=== PATIENT | male | born 1980 | race Caucasian/White ===

== ENCOUNTER 2020-01-14 16:03 | Inpatient (IN) | payer OTHER ==
--- NOTE | 2020-01-14 21:33 | HP ---
CIWA Score - Admission Criteria [facility] Guidelines: Admission for Medically Managed Detox: Requires at least one of the followin. CIWA greater than 12 2. Seizures within the past 24 hours 3. Delirium tremens within the past 24 hours 4. Hallucinations within the past 24 hours 5. Acute intervention needed for co occurring medical disorder 6. Acute intervention needed for co occurring psychiatric disorder 7. Severe withdrawal that cannot be handled at a lower level of care (continued vomiting, continued diarrhea, abnormal vital signs) requiring intravenous medication and/or fluids 8. Admission ROS [facility] Chief Complaint: seeking txment for cocaine dependence History of Present Illness: ADMITTED TO REHAB. THIS IS CLIENT FIRST ADMISSION . HE IS REFERRED BY [facility] AFTER PRESENTING THERE FOR HELP. HE REPORTS DAILY USE OF COCAINE. LAST USE 2 DAYS AGO VIA SMOKING. HE ALSO ABUSES MARIJUANNA. DENIES HX/O DRUG OVERDOSE, IVDU. DENIES ANY CLEAN TIME IN THE PAST 12 MONTHS. HX/ OF INPATIENT TXMENT. LAST BEING 2017- REHAB. LONGEST CLEAN TIME 1 MONTH. HOMELESS, OPEN LEGAL CASES Exam Limitations: No Limitations - Ebola screening Have you traveled outside of the country in the last 21 days: No Have you had contact with anyone from an Ebola affected area: No Have you been sick,other than usual withdrawal symptoms: No Do you have a fever: No - Review of Systems Constitutional: No Symptoms Reported EENT: reports: No Symptoms Reported Respiratory: reports: No Symptoms reported Cardiac: reports: No Symptoms Reported GI: reports: No Symptoms Reported : reports: No Symptoms Reported Musculoskeletal: reports: No Symptoms Reported Integumentary: reports: No Symptoms Reported Neuro: reports: No Symptoms reported Endocrine: reports: No Symptoms Reported Hematology: reports: No Symptoms Reported Psychiatric: reports: Agitated (IRRITABLE), Depressed (DENIES SI) Other Systems: Reviewed and Negative Patient History - Patient Medical History Hx Anemia: No Hx Asthma: No Hx Chronic Obstructive Pulmonary Disease (COPD): No Hx Cancer: No Hx Cardiac Disorders: No Hx Congestive Heart Failure: No Hx Hypertension: No Hx Hypercholesterolemia: No Hx Pacemaker: No HX Cerebrovascular Accident: No Hx Seizures: No Hx Dementia: No Hx Diabetes: No Hx Gastrointestinal Disorders: No Hx Liver Disease: No Hx Genitourinary Disorders: No Hx Sexually Transmitted Disorders: No Hx Renal Disease (ESRD): No Hx Thyroid Disease: No Hx Human Immunodeficiency Virus (HIV): No Hx Hepatitis C: No Hx Depression: Yes (NO MEDS) Hx Bipolar Disorder: Yes Hx Schizophrenia: Yes Other Medical History: DENIES - Patient Surgical History Past Surgical History: No - PPD History Previous Implant?: Yes Documented Results: Negative w/o proof Implanted On Prior [facility] Admission?: No PPD to be Administered?: Yes - Smoking Cessation Smoking history: Current every day smoker Have you smoked in the past 12 months: Yes Aproximately how many cigarettes per day: 20 Cigars Per Day: 0 Hx Chewing Tobacco Use: No Initiated information on smoking cessation: Yes 'Breaking Loose' booklet given: 01/14/20 - Substance & Tx. History Hx Alcohol Use: Yes Hx Substance Use: Yes Substance Use Type: Cocaine, Heroin Hx Substance Use Treatment: Yes ([facility]) - Substances abused Cocaine Substance route: Smoking Frequency: Daily Amount used: 8 BALL Age of first use: 26 Date of last use: 01/12/20 Marijuana/Hashish Substance route: Oral Frequency: Daily Amount used: DIME Age of first use: 15 Date of last use: 01/12/20 Admission Physical Exam [facility] - Physical General Appearance: Yes: Irritable, Anxious HEENTM: Yes: EOMI, Normocephalic, Normal Voice, [place], Pharynx Normal Respiratory: Yes: Chest Non-Tender, Lungs Clear, Normal Breath Sounds, No Respiratory Distress, No Accessory Muscle Use Neck: Yes: No masses,lesions,Nodules, Supple, Trachea in good position Breast: Yes: Breasts Symetrical Cardiology: Yes: Regular Rhythm, Regular Rate, S1, S2 Abdominal: Yes: Normal Bowel Sounds, Non Tender, Soft Genitourinary: Yes: Within Normal Limits Back: Yes: Normal Inspection Musculoskeletal: Yes: Within Normal Limits Extremities: Yes: Normal Capillary Refill, Normal Range of Motion, Non-Tender Neurological: Yes: Fully Oriented, Motor Strength 5/5, Depressed Affect Integumentary: Yes: Dry, Warm, Other (CALLUSES NOTED TO FEEL HEALING ABRASION NOTED TO BOTH SHINS FROM) Lymphatic: Yes: Within Normal Limits - Diagnostic (1) Cannabis dependence, uncomplicated Current Visit: Yes Status: Acute (2) Cocaine dependence, uncomplicated Current Visit: Yes Status: Acute (3) Nicotine dependence Current Visit: Yes Status: Acute (4) Homeless Current Visit: Yes Status: Acute (5) Substance induced mood disorder Current Visit: Yes Status: Acute (6) Depressed affect Current Visit: Yes Status: Acute (7) Non compliance with medical treatment Current Visit: Yes Status: Chronic (8) Non compliance w medication regimen Current Visit: Yes Status: Chronic Cleared for Admission [facility] - Detox or Rehab Detox Regimen/Protocol: Not Applicable Claeared for Rehab Admission: Yes Inpatient Rehab Admission - Rehab Decision to Admit Inpatient rehab admission?: Yes - Initial Determination Are CD services needed?: Yes Free of communicable disease: Yes Not in need of hospitalization: Yes - Rehab Admission Criteria Previous failed treatment: Yes Poor recovery environment: Yes Comorbidities: Yes Lacks judgement: No Patient is meeting Inpatient Rehab admission criteria:: Yes
[2020-01-14] MEDS ORDERED: MAG HYDROX/AL HYDROX/SIMETH 30 ML UNIT-DOSE CUP PO PRN (21:36)
[2020-01-14] MEDS ORDERED: MAGNESIUM HYDROX 2400MG/30ML ORAL SUSPENSION 30 ML CUP PO PRN (21:36)
[2020-01-14] MEDS ORDERED: IBUPROFEN 400 MG TABLET (FP) PO PRN (21:36)
[2020-01-14] MEDS ORDERED: MAGNESIUM CITRATE 300 ML BOTTLE PO PRN (21:36)
[2020-01-14] MEDS ORDERED: NICOTINE POLACRILEX 2 MG GUM BC PRN (21:36)
[2020-01-14] MEDS ORDERED: ACETAMINOPHEN 325 MG TABLET (FP) PO PRN (21:36)
[2020-01-14] MEDS ORDERED: P-EPHED 60MG/TRIPROLIDI 2.5MG TABLET PO PRN (21:36)
[2020-01-14] MEDS ORDERED: LOPERAMIDE HCL 2 MG CAPSULE PO PRN (21:36)
[2020-01-14] MEDS ORDERED: guaiFENesin 200 MG/10 ML 10 ML UNIT-DOSE CUPS PO PRN (21:36)
[2020-01-14 22:34] VITALS: BMI 21.7
[2020-01-14] MEDS ORDERED: TUBERCULIN PPD 5 TU/0.1ML VIAL ID ONE (22:51)
[2020-01-14] MEDS: THIAMINE HCL 100 MG TABLET (FP) PO SCH (22:57)
[2020-01-14] MEDS: MELATONIN 5 MG TABLETS PO SCH (22:58)
[2020-01-14] MEDS: hydrOXYzine PAMOATE 25 MG CAPSULE (FP) PO SCH (22:58)
[2020-01-15] MEDS: hydrOXYzine PAMOATE 25 MG CAPSULE (FP) PO SCH ×5 (07:30→22:17)
[2020-01-15] MEDS: NICOTINE 21 MG/24 HOURS TOPICAL PATCH TD SCH (10:57)
[2020-01-15] MEDS: PRENATAL VITAMINS W/ FOLIC ACID TABLET (FP) PO SCH (10:57)
--- NOTE | 2020-01-15 11:21 | CONSULT ---
[facility] Psychiatric Consult - Data Date of interview: 01/15/20 Admission source: [facility] Identifying data: Patient is a 39 year old single male without children, unemployed, resides in a fdc, and is supported by welfare. This is patient's first admission to [facility]. Patient admitted to for cocaine dependence. Substance Abuse History: Smoking Cessation. Smoking history: Current every day smoker. Have you smoked in the past 12 months: Yes. Aproximately how many cigarettes per day: 20. Cigars Per Day: 0. Hx Chewing Tobacco Use: No. Initiated information on smoking cessation: Yes. 'Breaking Loose' booklet given: 01/14/20. - Substance & Tx. History. Hx Alcohol Use: Yes. Hx Substance Use: Yes. Substance Use Type: Cocaine, Heroin. Hx Substance Use Treatment: Yes ([facility]). - Substances abused. Cocaine. Substance route: Smoking. Frequency: Daily. Amount used: 8 BALL. Age of first use: 26. Date of last use: 01/12/20. Marijuana/Hashish. Substance route: Oral. Frequency: Daily. Amount used: DIME. Age of first use: 15. Date of last use: 01/12/20 Medical History: denies. endorses good health. Psychiatric History: Mr. Hanson first psychiatric contact occured at 18 years of age due onset disturbances of auditory hallucinations. He reports seeing an outpatient psychiatrist who diagnosed him with bipolar, schizophrenia and prescribed him psychotropic medications. Patient reports history of approximately five psychiartric hospitalizations ([facility], [facility]) most recently at [facility] from December 24- due to hearing voices and exhibiting depressive symptoms. States he was prescribed risperdal and other medications he can't recall. After discharge patient reports throwing away his medications. Patient with a history of noncompliance to outpatient treatment. He also reports past treatment with haldol, seroquel, abilify, and zyprexa. Denies history suicide attempt. At present patient denies auditory/visual hallucinations, suicidal/homicidal ideation. Physical/Sexual Abuse/Trauma History: denies. Additional Comment: Patient is registered sexual offender. Mental Status Exam - Mental Status Exam Alert and Oriented to: Time, Place, Person Cognitive Function: Good Patient Appearance: Well Groomed Mood: Withdrawn, Irritable (slightly irritable but cooperative.) Affect: Flat Patient Behavior: Cooperative Speech Pattern: Appropriate Voice Loudness: Moderately Soft/Quiet Thought Process: Goal Oriented Thought Disorder: Not Present Hallucinations: Denies Suicidal Ideation: Denies Homicidal Ideation: Denies Insight/Judgement: Poor Sleep: Fair Appetite: Fair Muscle strength/Tone: Normal Gait/Station: Normal Psychiatric Findings - Problem List ([place] 1, 2,3) (1) Schizoaffective disorder Current Visit: Yes Status: Chronic Qualifiers: Schizoaffective disorder type: bipolar Qualified Code(s): F25.0 - Schizoaffective disorder, bipolar type (2) Cannabis dependence, uncomplicated Current Visit: Yes Status: Acute (3) Cocaine dependence, uncomplicated Current Visit: Yes Status: Acute (4) Nicotine dependence Current Visit: Yes Status: Acute (5) Substance induced mood disorder Current Visit: Yes Status: Acute (6) Bipolar disorder Current Visit: Yes Status: Chronic - Initial Treatment Plan Initial Treatment Plan: Psychoeducation provided. Rehab in progress. Unable to verify medications but patient did reports taking risperdal but is unsure of dosages. Patient also reported stiffness from taking medications. Will initiate treatment with Risperdal 1mg BID ( first dose to be given now) + Cogentin 0.5mg BID. Benefits and side effects discussed. Verbal consent given.
--- NOTE | 2020-01-15 12:04 | PN ---
[facility] Progress Note Note: Pt is a 39 y/o male with a hx of LAWANDA-cocaine,marijuana admitte to rehab through [facility] and first time to this facility. Referred from [facility]. Pt is Homeless. PMHx:Denies. Psych Hx:Depression(no Meds). Vital Signs - 24 hr 01/14/20 01/14/20 01/15/20 22:31 23:05 00:30 Temperature 98.8 F 97.4 F L Pulse Rate 73 64 Respiratory 18 16 20 Rate Blood Pressure 111/68 114/67 01/15/20 01/15/20 07:10 10:00 Temperature 97.9 F Pulse Rate 73 Respiratory 20 16 Rate Blood Pressure 105/63 Alert and irritable when called to be seen nad oob ambulating with steady gait Pt became very angry and irritable when called to see him for new pt first encounter. Pt was cursing and stating "even José Migueldavid doesn't get called the way you all are calling me. I need to rest and I don't want any thing right now") A/P new rehab pt Irritablility Maintain safety Pt was allowed to get back to his room to rest and he agreed to be seen again tomorrow. re-visit to seehow pt is doing tomorrow.
[2020-01-15 13:16] LABS: HEMATOCRIT 36.5 % (35.4-49); HEMOGLOBIN 12.2 GM/dL (11.7-16.9); MCH 30.8 pg (25.7-33.7); MCHC 33.5 g/dl (32.0-35.9); MEAN PLT VOLUME 8.6 fl (7.5-11.1); PLATELET COUNT 267 K/MM3 (134-434); RBC 3.97 M/mm3 (4.00-5.60); RDW 14.7 % (11.9-15.9); WHITE BLOOD COUNT 4.7 K/mm3 (4.0-10.0)
[2020-01-15 13:28] LABS: ALBUMIN 3.2 g/dl (3.4-5.0); BILIRUBIN,TOTAL 0.4 mg/dL (0.2-1); BLOOD UREA NITROGEN 13.1 mg/dL (7-18); CALCIUM 8.3 mg/dL (8.5-10.1); CREATININE 1.1 mg/dL (0.55-1.3); TOT PROT 6.3 g/dl (6.4-8.2)
[2020-01-15] MEDS ORDERED: risperiDONE 1 MG TABLET PO SCH (13:30)
[2020-01-15] MEDS ORDERED: BENZTROPINE MESYLATE 1 MG TABLET PO SCH (13:30)
--- NOTE | 2020-01-15 14:06 | EKG ---
Test Reason : Blood Pressure : / mmHG Vent. Rate : 072 BPM Atrial Rate : 072 BPM P-R Int : 180 ms QRS Dur : 096 ms QT Int : 442 ms P-R-T Axes : 044 072 068 degrees QTc Int : 483 ms NORMAL SINUS RHYTHM PROLONGED QT ABNORMAL ECG NO PREVIOUS ECGS AVAILABLE Confirmed by MAGALI WATSON MD ([id number]) on 01/15/2020 2:06:06 PM Referred By: Confirmed By:MAGALI WATSON MD
--- NOTE | 2020-01-15 15:50 | PN ---
[facility] Progress Note Note: Psychiatric nurse hilary note: Counselor Liliam able to obtain patient's list of psychotropic medications from his discharge paperwork from [facility]. As per paperwork from [facility] patient has been diagnosed with Bipolar disorder unspecified, and MDD with psychotic features. Patient's medications are as followed : Haldol 10mg BID +Depakote 500mg EC BID + Cogentin 1mg BID. At 1:30 pm mortgage or loan underwriter spoke to patient bedside concerning these medications and patient became highly irritable and raised his voice at mortgage or loan underwriter. Patient stated to mortgage or loan underwriter, " Leave me alone i Just want to sleep i am exhausted. No disrespect to you but i am tired of being awaken. I ain't taking no medications. I am tired. Leave me alone." Nursing staff informed. Upon initial assessment patient did not present with psychotic symptoms but did present with mild irritability and resistance to treatment but was cooperative while speaking to mortgage or loan underwriter. He did agree to accept medications but later refused (risperdal 1mg + Cogentin 0.5mg) when offered ( Risperdal 1mg + Cogentin 0.5mg BID was discontinued after discharge paperwork from [facility] was obtained.) Even though patient refuses to accept medications, mortgage or loan underwriter will order above medications that were given to him at [facility] in case patient decides to change his mind. Currently there is no need for psychiatric transfer. There is a risk of patient decompensating if he continues to refuse psychotropic medications. If this is the case, transfer to a psychiatric facility should be considered. Since patient was recently discharged from [facility], [facility] should be contacted in hopes of re-admitting patient to the psychiatric unit if a transfer is necessary . If patient becomes aggressive, and begins to threaten staff or his peers and becomes difficult to manage patient should be transferred 911 with launch commander [place] police escort to the nearest psychiatric emergency room.
[2020-01-15] MEDS: DIVALPROEX SODIUM 500 MG TABLET E.C. PO SCH (22:16)
[2020-01-15] MEDS: BENZTROPINE MESYLATE 1 MG TABLET PO SCH (22:16)
[2020-01-15] MEDS: MELATONIN 5 MG TABLETS PO SCH (22:17)
[2020-01-15] MEDS: HALOPERIDOL 5 MG TABLET PO SCH (22:17)
[2020-01-15] MEDS: THIAMINE HCL 100 MG TABLET (FP) PO SCH (22:17)
[2020-01-16] MEDS: hydrOXYzine PAMOATE 25 MG CAPSULE (FP) PO SCH ×3 (07:33→13:29)
--- NOTE | 2020-01-16 10:34 | PN ---
[facility] Progress Note Note: Pt came to his counselor's office during our morning rounds this morning to inform her of his pending court appointment on 01/25/20. Pt appeared a bit calmer than yesterday but shaking his shirt and c/o sweating-"it's hot in here". Pt reports he ate breakfast and had some rest last night. Pt's counselor, Ms Emre Ramachandran communicated with patient therapeutically and patient went back to his room calmly. Psych consult was done yesterday and pt's psych meds reordered. However, nurse reports that patient has been refusing the medications. Psych provider is aware. Vital Signs - 24 hr 01/16/20 01/16/20 01/16/20 00:30 03:30 06:56 Respiratory 18 18 18 Rate
[2020-01-16] MEDS: DIVALPROEX SODIUM 500 MG TABLET E.C. PO SCH ×2 (11:10→22:37)
[2020-01-16] MEDS: BENZTROPINE MESYLATE 1 MG TABLET PO SCH ×2 (11:10→22:37)
[2020-01-16] MEDS: HALOPERIDOL 5 MG TABLET PO SCH ×2 (11:11→22:37)
[2020-01-16] MEDS: PRENATAL VITAMINS W/ FOLIC ACID TABLET (FP) PO SCH (11:11)
[2020-01-16] MEDS: NICOTINE 21 MG/24 HOURS TOPICAL PATCH TD SCH (11:11)
--- NOTE | 2020-01-16 13:20 | PN ---
[facility] Progress Note Note: Psychiatric nurse practitioner note: Patient seen with Dr. Collazo. Patient presents as mildly irritable but cooperative and able to answer questions appropriately. Patient accepted all morning medications this morning. Stated to engineering writer that his goal is to complete rehab. As per nursing staff patient has not been problematic and is not disrupting the unit. Patient denies auditory/ visual hallucinations, suicidal/homicidal ideation. No psychosis noted.
--- NOTE | 2020-01-16 14:00 | PN ---
[facility] Progress Note Note: Psychiatry Attending's note (follow-up): Called by Ana Metcalf, clinical recycling crew supervisor. Request : psychiatric re-evaluation of patient. Issues : Irritability + non-adherence to medications. Chart reviewed. Consult notes by cashier associate Kitty : appreciated. Met with Mr Hanson. In the presence of AUNRAG Jacobs. Patient came to the conference room without any resistance. He admits to feeling " surprised " and concerned by this meeting. Purpose explained to the patient. History taken. Noted report of recent discharge from [facility]. Medications confirmed by ANURAG Jacobs. From discharge papers in possession of patient. Mr Hanson is currently TAKING all his prescribed medications. Confirmed by nursing staff. He is conversant, coherent, cooperative with interviewers and agreeable with his plan of care. " I am not bothering anybody. I don't hear voices or I don't feel like hurting myself or others." Patient remains somewhat irritable but, as per nurse's report, he has NOT caused any problem since AM. " I want to complete my program. I take my medications. Please leave me alone." No acting out behavior. Clinically, there is no evidence of a cognitive impairment. Personal hygiene is adequate. Mood remains stable. Good impulse control and much improved judgment. No delusion elicited. Limited insight. Baseline mental status. NO clinical indication or justification, at the time of this re-evaluation, for transfer to a psychiatric institution. Patient can be managed at [facility]. Psychiatry-Liaison will follow as needed (upon request). Discussed with staff. Also discussed with clinical supervisors + nurses of the Multidisciplinary team.
--- NOTE | 2020-01-16 14:59 | PN ---
S Progress Note Note: Met with patient today after his lunch for first medical encounter because pt wanted to met today since he was very tired yesterday and needed rest. Pt is a 39 y/o male with a hx of LAWANDA-cocaine,marijuana admitte to rehab through [facility] and first time to this facility. Referred from [facility]. Pt is Homeless. PMHx:Denies. Psych Hx:Bipolar disorder; Schizoaffective Disorder(on meds and reordered). Pt reports he has no primary care but goes to any ER for care when needed. Vital Signs - 24 hr 01/16/20 01/16/20 01/16/20 00:30 03:30 06:56 Respiratory 18 18 18 Rate Alert o x 3,denies s/h/i nad oob ambulating with steady gait extremities/skin:no edema;superficial abrasions to LE, significant on right than left LE. A/P LAWANDA new rehab pt decreased wt Maintain safety increase po fluids ensure plus tid Bacitracin ointment apply to affected areas on LE pt was seen by psych consult today(see psych notes).
[2020-01-16] MEDS ORDERED: hydrOXYzine PAMOATE 25 MG CAPSULE (FP) PO PRN (15:29)
[2020-01-16] MEDS: BACITRACIN 0.9 GM PACKET TP SCH (22:37)
[2020-01-16] MEDS: THIAMINE HCL 100 MG TABLET (FP) PO SCH (22:37)
[2020-01-16] MEDS: MELATONIN 5 MG TABLETS PO SCH (22:37)
[2020-01-17] MEDS: HALOPERIDOL 5 MG TABLET PO SCH ×2 (12:02→22:26)
[2020-01-17] MEDS: PRENATAL VITAMINS W/ FOLIC ACID TABLET (FP) PO SCH (12:02)
[2020-01-17] MEDS: DIVALPROEX SODIUM 500 MG TABLET E.C. PO SCH ×2 (12:02→22:25)
[2020-01-17] MEDS: BENZTROPINE MESYLATE 1 MG TABLET PO SCH ×2 (12:02→22:25)
[2020-01-17] MEDS: BACITRACIN 0.9 GM PACKET TP SCH ×2 (12:03→22:25)
[2020-01-17] MEDS: NICOTINE 21 MG/24 HOURS TOPICAL PATCH TD SCH (12:03)
[2020-01-17] MEDS: THIAMINE HCL 100 MG TABLET (FP) PO SCH (22:26)
[2020-01-17] MEDS: MELATONIN 5 MG TABLETS PO SCH (22:26)
[2020-01-18] MEDS: BENZTROPINE MESYLATE 1 MG TABLET PO SCH ×2 (09:58→22:09)
[2020-01-18] MEDS: BACITRACIN 0.9 GM PACKET TP SCH ×2 (09:58→22:08)
[2020-01-18] MEDS: PRENATAL VITAMINS W/ FOLIC ACID TABLET (FP) PO SCH (09:58)
[2020-01-18] MEDS: HALOPERIDOL 5 MG TABLET PO SCH ×2 (09:58→22:09)
[2020-01-18] MEDS: DIVALPROEX SODIUM 500 MG TABLET E.C. PO SCH ×2 (09:58→22:08)
[2020-01-18] MEDS: NICOTINE 21 MG/24 HOURS TOPICAL PATCH TD SCH (09:59)
[2020-01-18] MEDS: THIAMINE HCL 100 MG TABLET (FP) PO SCH (22:09)
[2020-01-18] MEDS: MELATONIN 5 MG TABLETS PO SCH (22:09)
[2020-01-19 07:00] VITALS: BP 99/64; PULSE 91; TEMP 98.1
[2020-01-19] MEDS: PRENATAL VITAMINS W/ FOLIC ACID TABLET (FP) PO SCH (10:02)
[2020-01-19] MEDS: DIVALPROEX SODIUM 500 MG TABLET E.C. PO SCH (10:02)
[2020-01-19] MEDS: HALOPERIDOL 5 MG TABLET PO SCH (10:02)
[2020-01-19] MEDS: BENZTROPINE MESYLATE 1 MG TABLET PO SCH (10:02)
[2020-01-19] MEDS: BACITRACIN 0.9 GM PACKET TP SCH (10:04)
[2020-01-19] MEDS: NICOTINE 21 MG/24 HOURS TOPICAL PATCH TD SCH (10:04)
--- NOTE | 2020-01-19 11:06 | DS ---
[facility] Rehab Discharge Summary - [facility] Rehab Discharge Summary Admission Date: 01/14/20 Discharge Date: 01/19/20 - History Present History: Cannabis dependence, Cocaine dependence Additional Comments: Pt is a 39 y/o male with a hx of LAWANDA admitted on 01/14/20 through [facility] to rehab and requesting an early discharge today stating "I have two tickets and I wanna get out of here to take care of it. I have court date next week". Pt was enc ourage to stay for treatment till next week but pt is unwilling to stay and wants to start the process. Pt reports he has a psychiatrist at [facility]. Pertinent Past History: Schizoaffective disorder - Discharge Physical Exam Vital Signs: Vital Signs Temperature 98.1 F 01/19/20 06:59 Pulse Rate 91 H 01/19/20 06:59 Respiratory Rate 16 01/19/20 06:59 Blood Pressure 99/64 01/19/20 06:59 O2 Sat by Pulse Oximetry (%) alert o x 3,denies s/h/i(Pt was seen by Dr. Fountain before discharging today and his meds sent to his pharmacy) Calm and reports weekend went well here. pt appears rested now and not agitated compared to first 48 hrs after admission nad oob ambulating with steady gait cardiac:s1 s2,rrr lungs:cta,kevin. abdomen:+bs,soft,nt,flat extremities/skin:no edema;abrasions on LE dry small scabs and improved,no redness or swelling. Pertinent Admission Physical Exam Findings: Laboratory Tests 01/15/20 01/15/20 01/15/20 08:10 08:10 08:10 WBC 4.7 RBC 3.97 L Hgb 12.2 Hct 36.5 MCV 92.0 MCH 30.8 MCHC 33.5 RDW 14.7 Plt Count 267 MPV 8.6 Sodium 142 Potassium 4.0 Chloride 108 H Carbon Dioxide 26 Anion Gap 7 L BUN 13.1 Creatinine 1.1 Est GFR (CKD-EPI)AfAm 97.49 Est GFR (CKD-EPI)NonAf 84.12 Random Glucose 86 Calcium 8.3 L Total Bilirubin 0.4 AST 12 L ALT 21 Alkaline Phosphatase 102 Total Protein 6.3 L Albumin 3.2 L RPR Titer Nonreactive Hep C Ab Diagnostic 01/15/20 08:10 WBC RBC Hgb Hct MCV MCH MCHC RDW Plt Count MPV Sodium Potassium Chloride Carbon Dioxide Anion Gap BUN Creatinine Est GFR (CKD-EPI)AfAm Est GFR (CKD-EPI)NonAf Random Glucose Calcium Total Bilirubin AST ALT Alkaline Phosphatase Total Protein Albumin RPR Titer Hep C Ab Diagnostic <0.1 - Treatment Discharge Condition: Discharge condition good Hospital Course: Safety maintained while in rehab. CD aftercare referred to Derrick Keller Security Officer Supervisor - Medication Discharge Medications: Ambulatory Orders Benztropine Mesylate [Cogentin -] 1 mg PO BID 01/15/20 Divalproex Sodium [Depakote ER] 500 mg PO BID 01/15/20 Haloperidol [Haldol -] 10 mg PO BID 01/15/20 Benztropine Mesylate [Cogentin -] 1 mg PO BID #30 tablet 01/19/20 Divalproex [Depakote -] 500 mg PO BID #60 tablet.ec 01/19/20 Haloperidol [Haldol -] 10 mg PO BID #120 tablet 01/19/20 - Medication-Assisted Treatment (MAT) Medication-Assisted Treatment (MAT): No - Discharge Instructions Diet, activity, other medical instructions: Diet:Regular Activity: oob ad marilyn Other medical instructions:follow up with CD aftercare with [facility] as recommended. Follow up with primary care /psych at [facility] clinic within 1 week after discharge. - Diagnosis (1) Cannabis dependence, uncomplicated Status: Chronic (2) Cocaine dependence, uncomplicated Status: Chronic (3) Homeless Status: Acute (4) Nicotine dependence Status: Chronic Qualifiers: Nicotine product type: cigarettes Substance use status: uncomplicated Qualified Code(s): F17.210 - Nicotine dependence, cigarettes, uncomplicated (5) Non compliance w medication regimen Status: Chronic - Follow-up Referral Minutes to complete discharge: 25 - AMA Did Patient Leave Against Medical Advice: No
--- NOTE | 2020-01-19 11:23 | PN ---
[facility] Progress Note Note: Patient is discharged today. Scripts for 30 days supply of medications(Cogentin 1 mg/bid, Haldol 10 mg/bid, Depakote 500 mg/bid) are electronically transmitted to [facility]acy at [facility] [place] [id number]
== END 2020-01-19 11:25 | disposition home or self-care (01) | DRG 772 ==
LOC: YASAS 16:03 → Y5N 21:43
PROVIDERS: ADMIT Allergy & Immunology; ATTEND Allergy & Immunology
PROC: HZ42ZZZ Group Counseling for Substance Abuse Treatment, Cognitive-Behavioral (ICD-10-PCS; principal; 2020-01-14)
DX: F14.20 Cocaine dependence, uncomplicated (principal); F12.20 Cannabis dependence, uncomplicated; F17.210 Nicotine dependence, cigarettes, uncomplicated; F25.9 Schizoaffective disorder, unspecified; F31.9 Bipolar disorder, unspecified; F19.24 Other psychoactive substance dependence with psychoactive substance-induced mood disorder; R45.89 Other symptoms and signs involving emotional state; S80.812A Abrasion, left lower leg, initial encounter; S80.811A Abrasion, right lower leg, initial encounter; X58.XXXA Exposure to other specified factors, initial encounter; Y93.89 Activity, other specified; Y92.89 Other specified places as the place of occurrence of the external cause; Y99.8 Other external cause status; Z91.14 Patient's other noncompliance with medication regimen; Z91.19 Patient's noncompliance with other medical treatment and regimen; Z59.0 Homelessness
CPT/HCPCS: 36415; 80053; 85027; 86593; 86803; 93005; 93010